=== PATIENT | male | born 1970 | race American Indian/Alaskan Native ===

== ENCOUNTER 2019-01-28 21:01 | Emergency (ER) | payer OTHER ==
[2019-01-29] MEDS ORDERED: ZOFRAN IV ONE (00:53)
[2019-01-29] MEDS ORDERED: LIDOCAINE VISCOUS 2% PO ONE (00:53)
[2019-01-29] MEDS ORDERED: ALUM-MAG HYDROX-SIMETH 200-200-20MG/5ML PO ONE (00:53)
--- NOTE | 2019-01-29 00:57 | Emergency Department Report ---
ED Abdominal Pain HPI - General Chief Complaint: Abdominal Pain Stated Complaint: ABD PAIN Time Seen by Provider: 01/29/19 00:52 Source: patient Mode of arrival: Ambulatory Limitations: No Limitations, Language Barrier - History of Present Illness Initial Comments: pt is a 48 y/o aam with 30 pack yr smoker, occassional etoh, who presents for Epigastric pain described as pressure burning radiating to lower abd x 2 days Complaint: abdominal pain Onset/Timin -: days(s) Location: epigastric Radiation: LLQ, RLQ Migration to: LLQ, RLQ Severity scale (0 -10): 10 Quality: fullness, sharp, burning Consistency: constant Improves With: nothing Worsens With: eating Associated Symptoms: nausea. denies: vomiting, diarrhea, fever, chills, constipation, dysuria, hematemesis, hematochezia, melena, hematuria, anorexia, syncope - Related Data Previous Rx's Medication Instructions Recorded Last Taken Type Omeprazole 20 mg PO DAILY #30 tablet. 01/29/19 Unknown Rx Sucralfate [Carafate] 1 gm PO ACHS PRN 7 Days #28 tablet 01/29/19 Unknown Rx ED Review of Systems ROS: Stated complaint: ABD PAIN Other details as noted in HPI Constitutional: denies: chills, fever Eyes: denies: eye pain, eye discharge, vision change ENT: denies: ear pain, throat pain Respiratory: denies: cough, shortness of breath, wheezing Cardiovascular: denies: chest pain, palpitations Endocrine: no symptoms reported Gastrointestinal: abdominal pain, nausea. denies: vomiting, diarrhea, constipation, hematemesis, melena, hematochezia Genitourinary: denies: urgency, dysuria Musculoskeletal: denies: back pain, joint swelling, arthralgia Skin: denies: rash, lesions Neurological: denies: headache, weakness, paresthesias Psychiatric: denies: anxiety, depression Hematological/Lymphatic: denies: easy bleeding, easy bruising ED Past Medical Hx - Past Medical History Previous Medical History?: No - Surgical History Past Surgical History?: Yes Additional Surgical History: Arm Sx plates and Rods - Social History Smoking Status: Current Every Day Smoker Substance Use Type: Marijuana - Medications Home Medications: Home Medications Medication Instructions Recorded Confirmed Last Taken Type Omeprazole 20 mg PO DAILY #30 tablet. 01/29/19 Unknown Rx Sucralfate [Carafate] 1 gm PO ACHS PRN 7 Days #28 tablet 01/29/19 Unknown Rx ED Physical Exam - General Limitations: No Limitations General appearance: alert, in no apparent distress - Head Head exam: Present: atraumatic, normocephalic - Eye Eye exam: Present: normal appearance, PERRL, EOMI Pupils: Present: normal accommodation - ENT ENT exam: Present: mucous membranes moist. Absent: normal exam, normal orophraynx, TM's normal bilaterally, normal external ear exam - Neck Neck exam: Present: normal inspection, full ROM, lymphadenopathy - Respiratory Respiratory exam: Present: normal lung sounds bilaterally. Absent: respiratory distress, wheezes, rhonchi, chest wall tenderness - Cardiovascular Cardiovascular Exam: Present: regular rate, normal rhythm, normal heart sounds. Absent: systolic murmur, diastolic murmur, rubs, gallop - GI/Abdominal GI/Abdominal exam: Present: soft, tenderness (epigastric ), normal bowel sounds. Absent: distended, guarding, rebound, rigid, bruit, hernia - Rectal Rectal exam: Present: deferred - Extremities Exam Extremities exam: Present: normal inspection - Back Exam Back exam: Present: normal inspection, full ROM, tenderness, muscle spasm. Absent: CVA tenderness (R), CVA tenderness (L), paraspinal tenderness, vertebral tenderness, rash noted - Neurological Exam Neurological exam: Present: alert, oriented X3, CN II-XII intact, normal gait, reflexes normal - Psychiatric Psychiatric exam: Present: normal affect - Skin Skin exam: Present: warm, dry, intact, normal color. Absent: rash ED Course Vital Signs 01/28/19 23:41 Temperature 97.9 F Pulse Rate 71 Respiratory 17 Rate Blood Pressure 139/86 [Right] O2 Sat by Pulse 97 Oximetry ED Medical Decision Making - Radiology Data Radiology results: report reviewed, image reviewed Ordering Physician: ALEX JIMENEZ NP Date of Service: 01/29/19 Procedure(s): XR abdomen 1V ap Accession Number(s): [id number] cc: ALEX JIMENEZ NP Fluoro Time In Minutes: PROCEDURE: XR ABDOMEN 1V AP TECHNIQUE: 2 AP views of the abdomen HISTORY: abd pain COMPARISONS: None . FINDINGS: Nonobstructive bowel gas pattern. No evident pneumoperitoneum. No suspicious calcification or fracture. IMPRESSION: No acute findings. Consider additional imaging including CT for worsening/persistent symptoms. This document is electronically signed by Praveen Moreno MD., January 29 2019 04:23:47 AM ET Transcribed By: ALISSA Dictated By: PRAVEEN MORENO MD Electronically Authenticated By: PRAVEEN MORENO MD Signed Date/Time: 01/29/19424 DD/ 1 TD/TT: 01/29/19351 - Medical Decision Making pain relieved by GI Cocktail ekg nsr no st elevated mi, pain is now rated at 1/10 plan, dc ot home with rx for omeprazole, carafate follow up with GI followup with pcp in 2-3 days pt verbalized agreement and understanding of discharge plan. Critical care attestation.: If time is entered above; I have spent that time in minutes in the direct care of this critically ill patient, excluding procedure time. ED Disposition Clinical Impression: Abdominal pain Qualifiers: Abdominal location: generalized Qualified Code(s): R10.84 - Generalized abdominal pain GERD (gastroesophageal reflux disease) Qualifiers: Esophagitis presence: without esophagitis Qualified Code(s): K21.9 - Gastro- esophageal reflux disease without esophagitis Disposition: DC-01 TO HOME OR SELFCARE Is pt being admited?: No Does the pt Need Aspirin: No Condition: Stable Instructions: Gastroesophageal Reflux Disease (ED), Diet for Ulcers and Gastritis (ED) Prescriptions: Sucralfate [Carafate] 1 gm PO ACHS PRN 7 Days #28 tablet PRN Reason: abdom pain Omeprazole 20 mg PO DAILY #30 tablet. Referrals: NANY CASPERLINCROFT MD JERRY [Primary Care Provider] - 3-5 Days Forms: Work/School Release Form(ED) Time of Disposition: 04:40
--- NOTE | 2019-01-29 04:25 | XRay Report ---
PROCEDURE: XR ABDOMEN 1V AP TECHNIQUE: 2 AP views of the abdomen HISTORY: abd pain COMPARISONS: None . FINDINGS: Nonobstructive bowel gas pattern. No evident pneumoperitoneum. No suspicious calcification or fractur e. IMPRESSION: No acute findings. Consider additional imaging including CT for worsening/persistent symptoms. This document is electronically signed by Praveen Hou MD., January 29 2019 04:23:47 AM ET
[2019-01-29 04:53] VITALS: BP 156/100
== END 2019-01-29 04:53 | disposition home or self-care (01) ==
LOC: ED 21:01
DX: K21.9 Gastro-esophageal reflux disease without esophagitis (principal); F17.200 Nicotine dependence, unspecified, uncomplicated; F12.10 Cannabis abuse, uncomplicated
CPT/HCPCS: 74018; 93005; 93010; 96374; 99283; J2405